=== PATIENT | male | born 1960 | race African-American/Black ===

== ENCOUNTER 2019-08-26 06:43 | Inpatient (IN) ==
[2019-08-26] MEDS ORDERED: ACETAMINOPHEN 500 MG TABLET PO STA (06:56)
[2019-08-26 07:13] LABS: Basophils # 0.1 10*3/uL (0.0-0.2); Basophils % 0.6 % (0.0-0.8); Eosinophils # 0.1 10*3/uL (0.0-0.87); Eosinophils % 0.7 % (0.00-10.9); Hemoglobin 12.3 GM/DL (14.0-18.0); Immature Granulocytes % 1.7 %; Immature Granulocytes Absolute 0.14 #; Lymphocytes # 0.8 10*3/uL (1.4-4.0); Mean Corpuscular HGB Conc 31.5 GM/DL (32-36); Mean Corpuscular Volume 93.5 FL (87-102); Monocytes % 10.1 % (1.7-12.7); Neutrophils % 77.9 % (38.7-73.9); Red Blood Count 4.17 MC/CUMM (3.8-5.5); White Blood Count 8.5 T/CUMM (4-12)
[2019-08-26 07:17] LABS: Platelet Count 51 T/CUMM (130-400)
[2019-08-26 07:19] LABS: INR 1.3; PT Patient Result 13.7 SECS (9.6-12.2)
[2019-08-26 07:29] LABS: Platelet Estimate Decreased
[2019-08-26 07:31] LABS: Alanine Aminotransferase 79 U/L (16-61); Albumin 2.9 G/DL (3.4-5.0); Alkaline Phosphatase 145 U/L (45-117); Aspartate Amino Transferase 54 U/L (0-37); Blood Urea Nitrogen 79 MG/DL (7-18); Calcium 9.5 MG/DL (8.5-10.1); Estimated Glom Filtration Rate 8 ML/MIN; Glucose 168 MG/DL (74-106); Osmolality,Calculated 295.2 MOS/KG (273-304); Total Protein 8.3 G/DL (6.4-8.3)
[2019-08-26] MEDS ORDERED: SODIUM CHLORIDE 0.9% 250 ML IV STA (07:36)
[2019-08-26] MEDS ORDERED: PIPERACILLIN/TAZOBACTAM 3,375 MG in SODIUM CHLORIDE 0.9% 100 ML IV STA (07:36)
[2019-08-26] MEDS ORDERED: VANCOMYCIN INJ 1,750 MG in SODIUM CHLORIDE 0.9% 500 ML IV ONE (14:00)
[2019-08-26] MEDS: SEVELAMER CARBONATE 800 MG TABLET PO SCH (16:53)
[2019-08-26] MEDS ORDERED: METOPROLOL TARTRATE 25 MG TABLET PO SCH (21:00)
[2019-08-26] MEDS ORDERED: VANCOMYCIN INJ 750 MG in SODIUM CHLORIDE 0.9% 250 ML IV PRN (21:00)
[2019-08-26] MEDS: PIPERACILLIN/TAZOBACTAM 3,375 MG in SODIUM CHLORIDE 0.9% 100 ML IV SCH (21:28)
[2019-08-27 05:21] LABS: Basophils % 0.3 % (0.0-0.8); Eosinophils % 0.3 % (0.00-10.9); Hematocrit 31.2 VOL% (42.0-52.0); Hemoglobin 10.1 GM/DL (14.0-18.0); Immature Granulocytes % 1.2 %; Immature Granulocytes Absolute 0.12 #; Lymphocytes # 0.5 10*3/uL (1.4-4.0); Lymphocytes % 5.3 % (21.2-54.2); Mean Corpuscular HGB Conc 32.4 GM/DL (32-36); Neutrophils % 84.9 % (38.7-73.9); Platelet Count 46 T/CUMM (130-400); Red Blood Count 3.43 MC/CUMM (3.8-5.5); Red Cell Distribution Width 16.9 % (9.3-17.3); White Blood Count 10.2 T/CUMM (4-12)
[2019-08-27 05:40] LABS: Band Neutrophils 1 % (0-10); Hypochromasia 1+; Lymphocytes 6 % (20-55); Platelet Estimate Decreased; Segmented Neutrophils 88 % (50-85); Total Cells Counted 100
[2019-08-27 05:50] LABS: HDL Cholesterol < 10 MG/DL (40-60); Triglycerides 193 MG/DL (2-150); VLDL CHOLESTEROL 38.6 MG/DL
[2019-08-27 06:07] LABS: Albumin 2.3 G/DL (3.4-5.0); Bilirubin,Total 2.8 MG/DL (0.2-1.0); Calcium 8.9 MG/DL (8.5-10.1); Osmolality,Calculated 294.1 MOS/KG (273-304); Total Protein 6.9 G/DL (6.4-8.3)
[2019-08-27] MEDS ORDERED: SODIUM CHLORIDE 0.9% 500 ML IV ONE (08:05)
[2019-08-27] MEDS ORDERED: amLODIPine 10 MG TABLET PO SCH (09:00)
[2019-08-27] MEDS: SEVELAMER CARBONATE 800 MG TABLET PO SCH ×3 (09:27→17:15)
[2019-08-27] MEDS: CINACALCET 30 MG TABLET PO SCH (09:28)
[2019-08-27] MEDS: ATORVASTATIN 20 MG TABLET PO SCH (09:28)
[2019-08-27] MEDS: PIPERACILLIN/TAZOBACTAM 3,375 MG in SODIUM CHLORIDE 0.9% 100 ML IV SCH ×2 (09:29→20:33)
[2019-08-27] MEDS ORDERED: LIDOCAINE 1%/EPI INJ 20 ML VIAL ONE (09:46)
[2019-08-27] MEDS ORDERED: HEPARIN 5,000 UNIT/1 ML VIAL ONE (09:46)
[2019-08-27] MEDS ORDERED: BUPIVACAINE 0.25% /EPI 10 ML VIAL ONE (09:46)
[2019-08-27] MEDS ORDERED: DEXMEDETOMIDINE 200 MCG/2 ML VIAL ONE (09:48)
[2019-08-27] MEDS ORDERED: MIDAZOLAM 2 MG/2 ML VIAL ONE (12:28)
[2019-08-27] MEDS ORDERED: KETAMINE 500 MG/10 ML VIAL ONE (12:28)
[2019-08-27] MEDS ORDERED: HEPARIN 10,000 UNIT/10 ML VIAL IV SCH (15:00)
[2019-08-27] MEDS ORDERED: VANCOMYCIN INJ 750 MG in SODIUM CHLORIDE 0.9% 250 ML IV ONE (17:00)
[2019-08-27] MEDS ORDERED: BISACODYL 10 MG SUPP RECTAL ONE (21:00)
[2019-08-28 05:50] LABS: Basophils % 0.4 % (0.0-0.8); Eosinophils # 0.1 10*3/uL (0.0-0.87); Eosinophils % 0.5 % (0.00-10.9); Hematocrit 31.3 VOL% (42.0-52.0); Hemoglobin 9.9 GM/DL (14.0-18.0); Immature Granulocytes % 1.8 %; Immature Granulocytes Absolute 0.17 #; Lymphocytes # 0.5 10*3/uL (1.4-4.0); Lymphocytes % 5.6 % (21.2-54.2); Mean Corpuscular HGB Conc 31.6 GM/DL (32-36); Monocytes % 9.6 % (1.7-12.7); Neutrophils % 82.1 % (38.7-73.9); Red Blood Count 3.33 MC/CUMM (3.8-5.5); Red Cell Distribution Width 17.2 % (9.3-17.3); White Blood Count 9.3 T/CUMM (4-12)
[2019-08-28 05:51] LABS: Platelet Count 54 T/CUMM (130-400)
[2019-08-28 06:13] LABS: Hypochromasia 1+; Ovalocytes Slight; Platelet Estimate Decreased
[2019-08-28 06:14] LABS: Albumin 1.9 G/DL (3.4-5.0); Bilirubin,Total 3.3 MG/DL (0.2-1.0); Osmolality,Calculated 280.1 MOS/KG (273-304); Total Protein 6.1 G/DL (6.4-8.3)
[2019-08-28] MEDS: SEVELAMER CARBONATE 800 MG TABLET PO SCH ×3 (08:46→18:10)
[2019-08-28] MEDS: CINACALCET 30 MG TABLET PO SCH (08:46)
[2019-08-28] MEDS: ATORVASTATIN 20 MG TABLET PO SCH (08:46)
[2019-08-28] MEDS: ATORVASTATIN 40 MG TABLET PO SCH (09:27)
[2019-08-28] MEDS: PIPERACILLIN/TAZOBACTAM 3,375 MG in SODIUM CHLORIDE 0.9% 100 ML IV SCH ×2 (10:31→21:19)
[2019-08-28] MEDS: calcitrioL 0.25 MCG CAPSULE PO SCH (11:32)
[2019-08-29] MEDS ORDERED: ACETAMINOPHEN 325 MG TABLET PO ONE (01:41)
[2019-08-29 02:45] LABS: Basophils % 0.3 % (0.0-0.8); Eosinophils # 0.1 10*3/uL (0.0-0.87); Eosinophils % 1.1 % (0.00-10.9); Hematocrit 32.5 VOL% (42.0-52.0); Hemoglobin 10.3 GM/DL (14.0-18.0); Immature Granulocytes % 4.8 %; Immature Granulocytes Absolute 0.44 #; Lymphocytes # 0.4 10*3/uL (1.4-4.0); Lymphocytes % 4.1 % (21.2-54.2); Mean Corpuscular HGB Conc 31.7 GM/DL (32-36); Mean Corpuscular Volume 93.7 FL (87-102); Mean Platelet Volume 13.7 FL (9.6-12.0); Monocytes % 7.3 % (1.7-12.7); Neutrophils % 82.4 % (38.7-73.9); Red Blood Count 3.47 MC/CUMM (3.8-5.5); Red Cell Distribution Width 17.3 % (9.3-17.3); White Blood Count 9.1 T/CUMM (4-12)
[2019-08-29 02:49] LABS: Platelet Count 73 T/CUMM (130-400)
[2019-08-29 02:51] LABS: Albumin 1.8 G/DL (3.4-5.0); Bilirubin,Total 3.2 MG/DL (0.2-1.0); Calcium 8.3 MG/DL (8.5-10.1); Osmolality,Calculated 282.8 MOS/KG (273-304); Total Protein 6.3 G/DL (6.4-8.3)
[2019-08-29 03:26] LABS: Anisocytosis 2+; Band Neutrophils 10 % (0-10); Eosinophils 3 % (0-10); Hypochromasia Slight; Lymphocytes 5 % (20-55); Macrocytosis 2+; Ovalocytes 2+; Platelet Estimate Decreased; Segmented Neutrophils 76 % (50-85); Total Cells Counted 100
[2019-08-29] MEDS: MIDODRINE 2.5 MG TABLET PO SCH ×2 (09:01→20:57)
[2019-08-29] MEDS: PIPERACILLIN/TAZOBACTAM 3,375 MG in SODIUM CHLORIDE 0.9% 100 ML IV SCH (09:01)
[2019-08-29] MEDS: ATORVASTATIN 40 MG TABLET PO SCH (09:01)
[2019-08-29] MEDS: SEVELAMER CARBONATE 800 MG TABLET PO SCH ×3 (09:01→16:53)
[2019-08-29] MEDS: CINACALCET 30 MG TABLET PO SCH (09:01)
[2019-08-29] MEDS: calcitrioL 0.25 MCG CAPSULE PO SCH (09:01)
[2019-08-29] MEDS ORDERED: ALBUMIN 25% 25 GM in PREMIX 1 EACH IV ONE (13:00)
[2019-08-29] MEDS ORDERED: VANCOMYCIN INJ 750 MG in SODIUM CHLORIDE 0.9% 250 ML IV ONE (17:00)
[2019-08-29] MEDS: ACETAMINOPHEN 325 MG TABLET PO PRN (21:03)
[2019-08-29] MEDS: MEROPENEM 500 MG in SODIUM CHLORIDE 0.9% 100 ML IV SCH (22:18)
[2019-08-30] MEDS ORDERED: methylPREDNISolone SOD SUC 125 MG/2 ML VIAL IV ONE (00:37)
[2019-08-30 05:43] LABS: Basophils # 0.1 10*3/uL (0.0-0.2); Basophils % 0.5 % (0.0-0.8); Eosinophils # 0.2 10*3/uL (0.0-0.87); Eosinophils % 1.6 % (0.00-10.9); Hematocrit 33.9 VOL% (42.0-52.0); Hemoglobin 10.3 GM/DL (14.0-18.0); Immature Granulocytes % 1.5 %; Immature Granulocytes Absolute 0.14 #; Lymphocytes # 0.5 10*3/uL (1.4-4.0); Mean Corpuscular HGB Conc 30.4 GM/DL (32-36); Mean Corpuscular Volume 94.7 FL (87-102); Mean Platelet Volume 11.7 FL (9.6-12.0); Monocytes % 8.5 % (1.7-12.7); Neutrophils % 82.9 % (38.7-73.9); Red Blood Count 3.58 MC/CUMM (3.8-5.5); Red Cell Distribution Width 17.2 % (9.3-17.3); White Blood Count 9.4 T/CUMM (4-12)
[2019-08-30 06:07] LABS: Platelet Count 77 T/CUMM (130-400)
[2019-08-30 06:17] LABS: Albumin 1.9 G/DL (3.4-5.0); Bilirubin,Total 3.8 MG/DL (0.2-1.0); Calcium 8.6 MG/DL (8.5-10.1); Osmolality,Calculated 270.2 MOS/KG (273-304); Total Protein 6.6 G/DL (6.4-8.3)
[2019-08-30 06:18] LABS: Hypochromasia 1+
[2019-08-30 06:19] LABS: Macrocytosis 1+; Platelet Estimate Decreased; Target Cells Slight
[2019-08-30] MEDS: CINACALCET 30 MG TABLET PO SCH (10:01)
[2019-08-30] MEDS: MIDODRINE 2.5 MG TABLET PO SCH ×2 (10:01→20:28)
[2019-08-30] MEDS: SEVELAMER CARBONATE 800 MG TABLET PO SCH ×3 (10:01→17:33)
[2019-08-30] MEDS: calcitrioL 0.25 MCG CAPSULE PO SCH (10:01)
[2019-08-30] MEDS: ATORVASTATIN 40 MG TABLET PO SCH (10:01)
[2019-08-30] MEDS: MEROPENEM 500 MG in SODIUM CHLORIDE 0.9% 100 ML IV SCH (20:31)
[2019-08-31] MEDS: SEVELAMER CARBONATE 800 MG TABLET PO SCH ×3 (07:55→16:36)
[2019-08-31 13:06] LABS: Basophils % 0.4 % (0.0-0.8); Eosinophils # 0.2 10*3/uL (0.0-0.87); Hematocrit 35.7 VOL% (42.0-52.0); Hemoglobin 10.8 GM/DL (14.0-18.0); Immature Granulocytes % 2.5 %; Lymphocytes # 0.6 10*3/uL (1.4-4.0); Lymphocytes % 7.5 % (21.2-54.2); Mean Corpuscular HGB Conc 30.3 GM/DL (32-36); Mean Corpuscular Volume 96.7 FL (87-102); Mean Platelet Volume 13.3 FL (9.6-12.0); Monocytes % 8.2 % (1.7-12.7); Neutrophils % 79.4 % (38.7-73.9); Platelet Count 100 T/CUMM (130-400); Red Blood Count 3.69 MC/CUMM (3.8-5.5); Red Cell Distribution Width 17.5 % (9.3-17.3)
[2019-08-31] MEDS ORDERED: SODIUM CHLORIDE 0.9% 1,000 ML IV SCH (14:00)
[2019-08-31] MEDS: calcitrioL 0.25 MCG CAPSULE PO SCH (15:02)
[2019-08-31] MEDS: MIDODRINE 2.5 MG TABLET PO SCH ×2 (15:02→21:19)
[2019-08-31] MEDS: ATORVASTATIN 40 MG TABLET PO SCH (15:02)
[2019-08-31] MEDS: CINACALCET 30 MG TABLET PO SCH (15:02)
[2019-08-31] MEDS: LEVOFLOXACIN INJ 500 MG in PREMIX 1 EACH IV SCH (15:21)
[2019-08-31] MEDS ORDERED: VANCOMYCIN INJ 750 MG in SODIUM CHLORIDE 0.9% 250 ML IV ONE (17:00)
[2019-09-01 07:56] LABS: Basophils % 0.6 % (0.0-0.8); Eosinophils # 0.1 10*3/uL (0.0-0.87); Eosinophils % 2.2 % (0.00-10.9); Hematocrit 35.3 VOL% (42.0-52.0); Hemoglobin 10.7 GM/DL (14.0-18.0); Immature Granulocytes % 2.1 %; Immature Granulocytes Absolute 0.13 #; Lymphocytes # 0.6 10*3/uL (1.4-4.0); Lymphocytes % 9.5 % (21.2-54.2); Mean Corpuscular HGB Conc 30.3 GM/DL (32-36); Mean Corpuscular Volume 95.9 FL (87-102); Mean Platelet Volume 13.2 FL (9.6-12.0); Monocytes % 9.2 % (1.7-12.7); Neutrophils % 76.4 % (38.7-73.9); Platelet Count 103 T/CUMM (130-400); Red Blood Count 3.68 MC/CUMM (3.8-5.5); Red Cell Distribution Width 17.2 % (9.3-17.3); White Blood Count 6.3 T/CUMM (4-12)
[2019-09-01 08:09] LABS: Calcium 8.5 MG/DL (8.5-10.1); Osmolality,Calculated 269.2 MOS/KG (273-304)
[2019-09-01] MEDS: SEVELAMER CARBONATE 800 MG TABLET PO SCH ×3 (08:39→16:44)
[2019-09-01] MEDS ORDERED: POTASSIUM CHLORIDE 20 MEQ TABLET PO PRN (08:59)
[2019-09-01] MEDS: CINACALCET 30 MG TABLET PO SCH (10:01)
[2019-09-01] MEDS: calcitrioL 0.25 MCG CAPSULE PO SCH (10:01)
[2019-09-01] MEDS: MIDODRINE 2.5 MG TABLET PO SCH ×2 (10:01→20:38)
[2019-09-01] MEDS: ATORVASTATIN 40 MG TABLET PO SCH (10:01)
[2019-09-01] MEDS: POTASSIUM CHLORIDE RIDER 10 MEQ in PREMIX 1 EACH IV PRN ×4 (10:40→14:39)
[2019-09-01] MEDS ORDERED: ALBUTEROL/IPRATROPIUM 3 ML NEB RESP TX PRN (11:32)
[2019-09-01] MEDS: ALBUTEROL/IPRATROPIUM 3 ML NEB RESP TX SCH ×2 (14:15→19:04)
[2019-09-02] MEDS: ALBUTEROL/IPRATROPIUM 3 ML NEB RESP TX SCH ×4 (00:31→19:20)
[2019-09-02 06:37] LABS: Basophils % 0.6 % (0.0-0.8); Eosinophils # 0.1 10*3/uL (0.0-0.87); Eosinophils % 1.8 % (0.00-10.9); Hematocrit 32.9 VOL% (42.0-52.0); Immature Granulocytes % 1.4 %; Immature Granulocytes Absolute 0.09 #; Lymphocytes # 0.7 10*3/uL (1.4-4.0); Lymphocytes % 10.5 % (21.2-54.2); Mean Corpuscular HGB Conc 30.4 GM/DL (32-36); Mean Corpuscular Volume 95.9 FL (87-102); Mean Platelet Volume 12.8 FL (9.6-12.0); Monocytes % 9.6 % (1.7-12.7); Neutrophils % 76.1 % (38.7-73.9); Platelet Count 110 T/CUMM (130-400); Red Blood Count 3.43 MC/CUMM (3.8-5.5); Red Cell Distribution Width 17.2 % (9.3-17.3); White Blood Count 6.3 T/CUMM (4-12)
[2019-09-02 06:57] LABS: Calcium 8.9 MG/DL (8.5-10.1); Osmolality,Calculated 274.4 MOS/KG (273-304)
[2019-09-02] MEDS: ATORVASTATIN 40 MG TABLET PO SCH (09:39)
[2019-09-02] MEDS: CINACALCET 30 MG TABLET PO SCH (09:39)
[2019-09-02] MEDS: MIDODRINE 2.5 MG TABLET PO SCH ×2 (09:39→20:33)
[2019-09-02] MEDS: calcitrioL 0.25 MCG CAPSULE PO SCH (09:39)
[2019-09-02] MEDS: SEVELAMER CARBONATE 800 MG TABLET PO SCH ×3 (09:40→18:42)
[2019-09-02] MEDS ORDERED: LIDOCAINE 1%/EPI INJ 20 ML VIAL ONE (11:34)
[2019-09-02] MEDS ORDERED: BUPIVACAINE MPF 0.25% 30 ML VIAL ONE (11:35)
[2019-09-02] MEDS ORDERED: propofoL 200 MG/20 ML VIAL IV ONE ×2 (11:40→13:07)
[2019-09-02] MEDS ORDERED: ETOMIDATE 40 MG/20 ML VIAL IV ONE (11:41)
[2019-09-02] MEDS ORDERED: LIDOCAINE 2% 5 ML VIAL ONE ×2 (11:41→13:07)
[2019-09-02] MEDS ORDERED: SODIUM CHLORIDE 0.9% 250 ML IV SCH (12:00)
[2019-09-02] MEDS ORDERED: HEPARIN 5,000 UNIT/1 ML VIAL ONE (12:14)
[2019-09-02] MEDS ORDERED: KETAMINE 500 MG/10 ML VIAL ONE (13:07)
[2019-09-02] MEDS ORDERED: fentaNYL 100 MCG/2 ML VIAL ONE (13:08)
[2019-09-02] MEDS ORDERED: PHENYLEPHRINE 1 MG/10 ML SYRINGE IV ONE (13:08)
[2019-09-02] MEDS ORDERED: MIDAZOLAM 2 MG/2 ML VIAL ONE (13:08)
[2019-09-02] MEDS ORDERED: SODIUM CHLORIDE 0.9% 250 ML IV ONE (13:08)
[2019-09-02] MEDS ORDERED: ALBUMIN 25% 25 GM in PREMIX 1 EACH IV ONE (15:00)
[2019-09-02] MEDS ORDERED: VANCOMYCIN INJ 750 MG in SODIUM CHLORIDE 0.9% 250 ML IV ONE (17:00)
[2019-09-02] MEDS: LEVOFLOXACIN INJ 500 MG in PREMIX 1 EACH IV SCH (17:33)
[2019-09-02] MEDS: GENTAMICIN INJ 80 MG in PREMIX 1 EACH IV SCH (19:19)
[2019-09-03] MEDS: ALBUTEROL/IPRATROPIUM 3 ML NEB RESP TX SCH ×4 (00:24→19:25)
[2019-09-03 04:55] LABS: Basophils % 0.6 % (0.0-0.8); Eosinophils # 0.1 10*3/uL (0.0-0.87); Eosinophils % 1.6 % (0.00-10.9); Hemoglobin 9.7 GM/DL (14.0-18.0); Immature Granulocytes % 1.3 %; Immature Granulocytes Absolute 0.08 #; Lymphocytes # 0.8 10*3/uL (1.4-4.0); Lymphocytes % 12.4 % (21.2-54.2); Mean Corpuscular HGB Conc 30.3 GM/DL (32-36); Mean Corpuscular Volume 95.5 FL (87-102); Mean Platelet Volume 12.7 FL (9.6-12.0); Monocytes % 8.8 % (1.7-12.7); Neutrophils % 75.3 % (38.7-73.9); Platelet Count 104 T/CUMM (130-400); Red Blood Count 3.35 MC/CUMM (3.8-5.5); White Blood Count 6.3 T/CUMM (4-12)
[2019-09-03 05:35] LABS: Calcium 8.5 MG/DL (8.5-10.1)
[2019-09-03] MEDS: MIDODRINE 2.5 MG TABLET PO SCH ×2 (08:57→20:05)
[2019-09-03] MEDS: CINACALCET 30 MG TABLET PO SCH (08:57)
[2019-09-03] MEDS: SEVELAMER CARBONATE 800 MG TABLET PO SCH ×3 (08:57→18:15)
[2019-09-03] MEDS: ATORVASTATIN 40 MG TABLET PO SCH (08:57)
[2019-09-03] MEDS: calcitrioL 0.25 MCG CAPSULE PO SCH (08:57)
[2019-09-03] MEDS ORDERED: SODIUM CHLORIDE 0.9% 300 ML IV ONE (12:20)
[2019-09-03] MEDS ORDERED: ALBUMIN 25% 25 GM in PREMIX 1 EACH IV ONE (13:41)
[2019-09-03] MEDS ORDERED: NOREPINEPHRINE 8 MG in SODIUM CHLORIDE 0.9% 242 ML IV PRN (14:02)
[2019-09-03] MEDS ORDERED: VANCOMYCIN INJ 750 MG in SODIUM CHLORIDE 0.9% 250 ML IV PRN (14:16)
[2019-09-03] MEDS ORDERED: POTASSIUM CHLORIDE 20 MEQ TABLET PO ONE (17:05)
[2019-09-03] MEDS ORDERED: GLUCAGON 1 MG VIAL IM PRN (17:42)
[2019-09-03] MEDS: DEXTROSE 10% 250 ML BAG IV PRN (18:05)
[2019-09-04] MEDS: ALBUTEROL/IPRATROPIUM 3 ML NEB RESP TX SCH ×4 (00:35→19:06)
[2019-09-04 06:00] LABS: Basophils # 0.1 10*3/uL (0.0-0.2); Eosinophils # 0.1 10*3/uL (0.0-0.87); Eosinophils % 2.1 % (0.00-10.9); Hemoglobin 9.9 GM/DL (14.0-18.0); Immature Granulocytes Absolute 0.05 #; Lymphocytes # 0.5 10*3/uL (1.4-4.0); Lymphocytes % 9.9 % (21.2-54.2); Mean Corpuscular HGB Conc 29.1 GM/DL (32-36); Mean Corpuscular Volume 98.8 FL (87-102); Mean Platelet Volume 12.6 FL (9.6-12.0); Monocytes % 7.2 % (1.7-12.7); Neutrophils % 78.8 % (38.7-73.9); Platelet Count 105 T/CUMM (130-400); Red Blood Count 3.44 MC/CUMM (3.8-5.5); Red Cell Distribution Width 17.2 % (9.3-17.3); White Blood Count 5.2 T/CUMM (4-12)
[2019-09-04 06:20] LABS: Calcium 8.5 MG/DL (8.5-10.1); Osmolality,Calculated 264.7 MOS/KG (273-304)
[2019-09-04 06:27] LABS: Hematocrit 33.3 VOL% (42.0-52.0)
[2019-09-04] MEDS: DEXTROSE 10% 250 ML BAG IV PRN (08:05)
[2019-09-04] MEDS: CINACALCET 30 MG TABLET PO SCH (09:39)
[2019-09-04] MEDS: calcitrioL 0.25 MCG CAPSULE PO SCH (09:40)
[2019-09-04] MEDS: ATORVASTATIN 40 MG TABLET PO SCH (09:40)
[2019-09-04] MEDS: SEVELAMER CARBONATE 800 MG TABLET PO SCH ×3 (09:40→17:52)
[2019-09-04] MEDS: MIDODRINE 2.5 MG TABLET PO SCH ×2 (09:40→20:50)
[2019-09-04] MEDS ORDERED: SODIUM CHLORIDE 0.9% 250 ML IV SCH (11:30)
[2019-09-04] MEDS ORDERED: VANCOMYCIN 1,000 MG VIAL ONE (12:00)
[2019-09-04] MEDS ORDERED: LIDOCAINE 2% 5 ML VIAL ONE (12:55)
[2019-09-04] MEDS ORDERED: PHENYLEPHRINE DRIP 20 MG/250 ML PREMIX IV ONE (12:55)
[2019-09-04] MEDS ORDERED: DESFLURANE 1 UNIT/15 MINUTE INH ONE (12:55)
[2019-09-04] MEDS ORDERED: propofoL 200 MG/20 ML VIAL IV ONE (12:55)
[2019-09-04] MEDS ORDERED: ETOMIDATE 40 MG/20 ML VIAL IV ONE (12:56)
[2019-09-04] MEDS ORDERED: ePHEDrine 50 MG/ML AMP ONE (12:56)
[2019-09-04] MEDS ORDERED: fentaNYL 100 MCG/2 ML VIAL ONE (12:56)
[2019-09-04] MEDS ORDERED: SUCCINYLCHOLINE 200 MG/10 ML VIAL ONE (12:56)
[2019-09-04] MEDS ORDERED: NEOSTIGMINE 10 MG/10 ML VIAL ONE (13:00)
[2019-09-04] MEDS ORDERED: GLYCOPYRROLATE 0.4 MG/2 ML VIAL ONE (13:00)
[2019-09-04] MEDS: ACETAMINOPHEN 325 MG TABLET PO PRN (16:54)
[2019-09-04] MEDS: MUPIROCIN 2% OINT 22 GM TUBE TOP SCH ×2 (16:55→20:50)
[2019-09-04] MEDS: GENTAMICIN INJ 80 MG in PREMIX 1 EACH IV SCH (20:51)
[2019-09-04] MEDS ORDERED: VANCOMYCIN INJ 750 MG in SODIUM CHLORIDE 0.9% 250 ML IV ONE (21:00)
[2019-09-05] MEDS: ALBUTEROL/IPRATROPIUM 3 ML NEB RESP TX SCH ×4 (02:03→18:21)
[2019-09-05 06:42] LABS: Basophils % 0.8 % (0.0-0.8); Eosinophils # 0.1 10*3/uL (0.0-0.87); Eosinophils % 1.6 % (0.00-10.9); Hematocrit 29.9 VOL% (42.0-52.0); Hemoglobin 8.7 GM/DL (14.0-18.0); Immature Granulocytes % 1.2 %; Immature Granulocytes Absolute 0.06 #; Lymphocytes # 0.6 10*3/uL (1.4-4.0); Lymphocytes % 11.8 % (21.2-54.2); Mean Corpuscular HGB Conc 29.1 GM/DL (32-36); Mean Corpuscular Volume 98.4 FL (87-102); Mean Platelet Volume 12.1 FL (9.6-12.0); Monocytes % 6.6 % (1.7-12.7); Platelet Count 90 T/CUMM (130-400); Red Blood Count 3.04 MC/CUMM (3.8-5.5); Red Cell Distribution Width 17.2 % (9.3-17.3); White Blood Count 5.2 T/CUMM (4-12)
[2019-09-05 07:13] LABS: Calcium 8.2 MG/DL (8.5-10.1); Osmolality,Calculated 261.5 MOS/KG (273-304)
[2019-09-05 10:10] LABS: Band Neutrophils 1 % (0-10); Eosinophils 1 % (0-10); Lymphocytes 12 % (20-55); Segmented Neutrophils 82 % (50-85); Total Cells Counted 100
[2019-09-05] MEDS: calcitrioL 0.25 MCG CAPSULE PO SCH (10:10)
[2019-09-05] MEDS: CINACALCET 30 MG TABLET PO SCH (10:10)
[2019-09-05] MEDS: MIDODRINE 2.5 MG TABLET PO SCH ×3 (10:10→21:17)
[2019-09-05] MEDS: SEVELAMER CARBONATE 800 MG TABLET PO SCH ×3 (10:10→16:15)
[2019-09-05] MEDS: ATORVASTATIN 40 MG TABLET PO SCH (10:10)
[2019-09-05 10:11] LABS: Hypochromasia 1+; Platelet Estimate Adequate; Schistocytes Slight
[2019-09-05] MEDS: MUPIROCIN 2% OINT 22 GM TUBE TOP SCH ×3 (10:11→21:17)
[2019-09-05] MEDS ORDERED: DEXTROSE 10% 1,000 ML IV SCH (16:00)
[2019-09-05] MEDS: HYDROCORTISONE 100 MG VIAL IV SCH ×2 (16:14→23:21)
[2019-09-05 18:26] LABS: ABG Base Excess -0.2 MMOL/L (-2.5-2.5); ABG HCO3 24.2 MMOL/L (20-26); ABG Oxygen Saturation 92.1 % (95-100); ABG PCO2 41.6 MM HG (35-48); ABG PH 7.385 (7.35-7.45); ABG PO2 61.5 MM HG (80-95); Allen Test Positive
[2019-09-05] MEDS: ACETAMINOPHEN 325 MG TABLET PO PRN (23:17)
[2019-09-06] MEDS: HYDROCORTISONE 100 MG VIAL IV SCH ×3 (00:15→16:02)
[2019-09-06] MEDS: ALBUTEROL/IPRATROPIUM 3 ML NEB RESP TX SCH ×4 (00:22→19:20)
[2019-09-06 06:35] LABS: Basophils % 0.5 % (0.0-0.8); Eosinophils % 0.3 % (0.00-10.9); Hematocrit 33.4 VOL% (42.0-52.0); Hemoglobin 9.8 GM/DL (14.0-18.0); Immature Granulocytes % 1.3 %; Immature Granulocytes Absolute 0.05 #; Lymphocytes # 0.4 10*3/uL (1.4-4.0); Mean Corpuscular HGB Conc 29.3 GM/DL (32-36); Mean Corpuscular Volume 96.8 FL (87-102); Mean Platelet Volume 13.3 FL (9.6-12.0); Monocytes % 3.5 % (1.7-12.7); Neutrophils % 84.4 % (38.7-73.9); Platelet Count 111 T/CUMM (130-400); Red Blood Count 3.45 MC/CUMM (3.8-5.5); Red Cell Distribution Width 17.2 % (9.3-17.3); White Blood Count 3.7 T/CUMM (4-12)
[2019-09-06 06:56] LABS: Calcium 8.7 MG/DL (8.5-10.1); Osmolality,Calculated 268.9 MOS/KG (273-304)
[2019-09-06] MEDS: calcitrioL 0.25 MCG CAPSULE PO SCH (09:45)
[2019-09-06] MEDS: ACETAMINOPHEN 325 MG TABLET PO PRN (09:45)
[2019-09-06] MEDS: MIDODRINE 2.5 MG TABLET PO SCH ×3 (09:46→20:27)
[2019-09-06] MEDS: MUPIROCIN 2% OINT 22 GM TUBE TOP SCH ×3 (09:46→20:27)
[2019-09-06] MEDS: CINACALCET 30 MG TABLET PO SCH (09:46)
[2019-09-06] MEDS: ATORVASTATIN 40 MG TABLET PO SCH (09:46)
[2019-09-06] MEDS: SEVELAMER CARBONATE 800 MG TABLET PO SCH ×3 (10:52→16:01)
[2019-09-06 11:48] LABS: Anisocytosis Slight; Hypochromasia 2+; Lymphocytes 3 % (20-55); Polychromasia Slight; Segmented Neutrophils 93 % (50-85); Total Cells Counted 100
[2019-09-06 11:49] LABS: Ovalocytes Slight; Platelet Estimate Adequate; Target Cells Slight
[2019-09-06 15:15] LABS: Albumin 1.9 G/DL (3.4-5.0); Bilirubin,Direct 4.51 MG/DL (0.0-0.20); Bilirubin,Indirect 0.8 MG/DL (0.0-1.0); Bilirubin,Total 5.3 MG/DL (0.2-1.0); Total Protein 7.8 G/DL (6.4-8.3)
[2019-09-06 16:15] LABS: HIV Antigen/Antibody Result Nonreactive (Nonreactive)
[2019-09-07] MEDS: HYDROCORTISONE 100 MG VIAL IV SCH ×4 (00:08→23:36)
[2019-09-07] MEDS: ALBUTEROL/IPRATROPIUM 3 ML NEB RESP TX SCH ×5 (00:15→19:24)
[2019-09-07 04:58] LABS: Basophils % 0.4 % (0.0-0.8); Hematocrit 33.3 VOL% (42.0-52.0); Hemoglobin 9.9 GM/DL (14.0-18.0); Immature Granulocytes Absolute 0.05 #; Lymphocytes # 0.3 10*3/uL (1.4-4.0); Lymphocytes % 6.1 % (21.2-54.2); Mean Corpuscular HGB Conc 29.7 GM/DL (32-36); Mean Corpuscular Volume 95.7 FL (87-102); Mean Platelet Volume 12.2 FL (9.6-12.0); Monocytes % 2.7 % (1.7-12.7); Neutrophils % 89.8 % (38.7-73.9); Platelet Count 124 T/CUMM (130-400); Red Blood Count 3.48 MC/CUMM (3.8-5.5); Red Cell Distribution Width 17.1 % (9.3-17.3); White Blood Count 5.2 T/CUMM (4-12)
[2019-09-07 05:31] LABS: Calcium 8.6 MG/DL (8.5-10.1); Osmolality,Calculated 274.2 MOS/KG (273-304)
[2019-09-07 05:36] LABS: Bilirubin,Total 4.6 MG/DL (0.2-1.0); Calcium 8.5 MG/DL (8.5-10.1); Osmolality,Calculated 275.1 MOS/KG (273-304); Total Protein 8.4 G/DL (6.4-8.3)
[2019-09-07] MEDS ORDERED: SODIUM HYPOCHLORITE 0.25% IRRIG 473 ML BOTTLE TOP SCH (09:17)
[2019-09-07] MEDS: MIDODRINE 2.5 MG TABLET PO SCH ×3 (09:36→22:24)
[2019-09-07] MEDS: MUPIROCIN 2% OINT 22 GM TUBE TOP SCH ×3 (09:36→22:24)
[2019-09-07] MEDS: CINACALCET 30 MG TABLET PO SCH (09:37)
[2019-09-07] MEDS: ATORVASTATIN 40 MG TABLET PO SCH (09:37)
[2019-09-07] MEDS: calcitrioL 0.25 MCG CAPSULE PO SCH (09:37)
[2019-09-07] MEDS: SEVELAMER CARBONATE 800 MG TABLET PO SCH ×3 (09:37→18:03)
[2019-09-07] MEDS ORDERED: VANCOMYCIN INJ 1,000 MG in SODIUM CHLORIDE 0.9% 250 ML IV ONE ×2 (13:45→22:30)
[2019-09-08] MEDS: ALBUTEROL/IPRATROPIUM 3 ML NEB RESP TX SCH ×2 (00:22→07:21)
[2019-09-08 04:46] LABS: Hematocrit 31.4 VOL% (42.0-52.0); Hemoglobin 9.3 GM/DL (14.0-18.0); Immature Granulocytes % 1.3 %; Immature Granulocytes Absolute 0.04 #; Lymphocytes # 0.3 10*3/uL (1.4-4.0); Lymphocytes % 7.9 % (21.2-54.2); Mean Corpuscular HGB Conc 29.6 GM/DL (32-36); Mean Corpuscular Volume 95.7 FL (87-102); Mean Platelet Volume 13.3 FL (9.6-12.0); Monocytes % 7.3 % (1.7-12.7); Neutrophils % 83.5 % (38.7-73.9); Platelet Count 111 T/CUMM (130-400); Red Blood Count 3.28 MC/CUMM (3.8-5.5); White Blood Count 3.2 T/CUMM (4-12)
[2019-09-08 05:10] LABS: Calcium 8.5 MG/DL (8.5-10.1); Osmolality,Calculated 273.5 MOS/KG (273-304)
[2019-09-08] MEDS: HYDROCORTISONE 100 MG VIAL IV SCH ×2 (09:11→09:14)
[2019-09-08] MEDS: SEVELAMER CARBONATE 800 MG TABLET PO SCH (09:12)
[2019-09-08] MEDS: MIDODRINE 2.5 MG TABLET PO SCH (09:12)
[2019-09-08] MEDS: CINACALCET 30 MG TABLET PO SCH (09:12)
[2019-09-08] MEDS: ATORVASTATIN 40 MG TABLET PO SCH (09:13)
[2019-09-08] MEDS: calcitrioL 0.25 MCG CAPSULE PO SCH (09:13)
[2019-09-08 12:01] VITALS: BP 158/93
== END 2019-09-08 11:45 | disposition home health service (06) | DRG 673 ==
LOC: EDUNIT# → EDBD → N.ED 06:43 → SUATTDRO 11:45 → N.EDINP 11:45 → N.5E 12:57 → N.ICU 09-03 14:01 → N.5E 09-04 18:09
PROVIDERS: ADMIT Hospitalist; ATTEND Internal Medicine
PROC: VAVDCFI (2019-08-27 10:30)

== ENCOUNTER 2020-01-11 14:12 | Inpatient (IN) ==
[2020-01-11 15:56] LABS: Basophils % 0.5 % (0.0-0.8); Eosinophils % 0.5 % (0.00-10.9); Hematocrit 39.9 VOL% (42.0-52.0); Immature Granulocytes % 0.9 %; Immature Granulocytes Absolute 0.08 #; Lymphocytes # 0.7 10*3/uL (1.4-4.0); Lymphocytes % 7.8 % (21.2-54.2); Mean Corpuscular HGB Conc 29.3 GM/DL (32-36); Mean Corpuscular Volume 93.4 FL (87-102); Monocytes % 2.8 % (1.7-12.7); Neutrophils % 87.5 % (38.7-73.9); Platelet Count 60 T/CUMM (130-400); Red Blood Count 4.27 MC/CUMM (3.8-5.5); Red Cell Distribution Width 15.9 % (9.3-17.3); White Blood Count 8.8 T/CUMM (4-12)
[2020-01-11 16:11] LABS: Hemoglobin 11.7 GM/DL (14.0-18.0)
[2020-01-11 16:31] LABS: Calcium 8.9 MG/DL (8.5-10.1); Osmolality,Calculated 271.1 MOS/KG (273-304)
[2020-01-11] MEDS ORDERED: DEXTROSE 50% 25 GM/50 ML SYRINGE IV ONE ×3 (16:36→17:35)
[2020-01-11] MEDS ORDERED: DEXTROSE 50% 25 GM/50 ML VIAL IV STA ×2 (16:42→17:01)
[2020-01-11] MEDS ORDERED: ONDANSETRON 4 MG/2 ML VIAL IV PRN (17:03)
[2020-01-11] MEDS ORDERED: GLUCAGON 1 MG VIAL IM PRN ×2 (17:03)
[2020-01-11] MEDS ORDERED: ACETAMINOPHEN 325 MG TABLET PO PRN (17:03)
[2020-01-11] MEDS ORDERED: DEXTROSE 50% 25 GM/50 ML VIAL IV PRN ×2 (17:03)
[2020-01-11] MEDS ORDERED: AZITHROMYCIN INJ 500 MG in SODIUM CHLORIDE 0.9% 250 ML IV SCH (17:30)
[2020-01-11] MEDS ORDERED: ENOXAPARIN 40 MG/0.4 ML SYRINGE SUBCUT SCH (17:30)
[2020-01-11] MEDS ORDERED: ASPIRIN CHEW 81 MG TABLET PO STA (17:42)
[2020-01-11] MEDS ORDERED: DEXTROSE 10% 1,000 ML IV SCH (18:00)
[2020-01-11] MEDS ORDERED: AZITHROMYCIN 250 MG TABLET PO ONE (18:00)
[2020-01-11] MEDS ORDERED: NOREPINEPHRINE 4 MG/4 ML VIAL IV ONE (18:47)
[2020-01-11] MEDS ORDERED: DEXTROSE 10% 250 ML IV ONE ×2 (18:48→18:49)
[2020-01-11] MEDS: HYDROCORTISONE 100 MG VIAL IV SCH (19:10)
[2020-01-11] MEDS: NOREPINEPHRINE 8 MG in SODIUM CHLORIDE 0.9% 242 ML IV PRN (19:50)
[2020-01-11] MEDS ORDERED: VANCOMYCIN INJ 1,500 MG in SODIUM CHLORIDE 0.9% 500 ML IV ONE ×2 (20:00→23:00)
[2020-01-11 21:10] LABS: INR 2.6
[2020-01-11 21:13] LABS: PT Patient Result 26.6 SECS (9.8-11.9)
[2020-01-11 21:18] LABS: Alanine Aminotransferase 87 U/L (16-61); Albumin 2.7 G/DL (3.4-5.0); Alkaline Phosphatase 115 U/L (45-117); Aspartate Amino Transferase 226 U/L (0-37); Bilirubin,Indirect 0.5 MG/DL (0.0-1.0); Total Protein 7.9 G/DL (6.4-8.3)
[2020-01-11] MEDS: cefTRIAXone 1,000 MG in SYRINGE 1 EACH IV SCH (21:50)
[2020-01-11] MEDS ORDERED: FLUDROCORTISONE 0.1 MG TABLET PO ONE (22:49)
[2020-01-12] MEDS: HYDROCORTISONE 100 MG VIAL IV SCH ×3 (02:50→18:20)
[2020-01-12 04:31] LABS: Albumin 2.7 G/DL (3.4-5.0); Basophils # 0.1 10*3/uL (0.0-0.2); Basophils % 0.5 % (0.0-0.8); Bilirubin,Total 1.7 MG/DL (0.2-1.0); Eosinophils % 0.1 % (0.00-10.9); Hematocrit 40.1 VOL% (42.0-52.0); Hemoglobin 12.1 GM/DL (14.0-18.0); Immature Granulocytes % 4.5 %; Immature Granulocytes Absolute 0.79 #; Lymphocytes # 0.4 10*3/uL (1.4-4.0); Lymphocytes % 2.5 % (21.2-54.2); Mean Corpuscular HGB Conc 30.2 GM/DL (32-36); Mean Corpuscular Volume 91.3 FL (87-102); Monocytes % 3.9 % (1.7-12.7); Neutrophils % 88.5 % (38.7-73.9); Osmolality,Calculated 281.4 MOS/KG (273-304); Platelet Count 55 T/CUMM (130-400); Red Blood Count 4.39 MC/CUMM (3.8-5.5); Total Protein 8.1 G/DL (6.4-8.3); White Blood Count 17.5 T/CUMM (4-12)
[2020-01-12 04:42] LABS: Band Neutrophils 7 % (0-10); Eosinophils 1 % (0-10); Platelet Estimate Decreased; Segmented Neutrophils 87 % (50-85); Total Cells Counted 100
[2020-01-12 04:43] LABS: Hypochromasia Slight
[2020-01-12 04:44] LABS: Thyroid Stimulating Hormone 4.67 uIU/ml (0.358-3.74)
[2020-01-12] MEDS ORDERED: AZITHROMYCIN 250 MG TABLET PO SCH (09:00)
[2020-01-12] MEDS: FLUDROCORTISONE 0.1 MG TABLET PO SCH (09:30)
[2020-01-12] MEDS ORDERED: DIAZEPAM 5 MG TABLET ONE (11:24)
[2020-01-12] MEDS ORDERED: DIAZEPAM 5 MG TABLET PO ONE (11:30)
[2020-01-12] MEDS: NOREPINEPHRINE 8 MG in SODIUM CHLORIDE 0.9% 242 ML IV PRN ×2 (11:55→23:53)
[2020-01-12] MEDS ORDERED: VANCOMYCIN INJ 750 MG in SODIUM CHLORIDE 0.9% 250 ML IV PRN (16:26)
[2020-01-12 16:56] LABS: CKMB % 1.5 %
[2020-01-12 17:00] LABS: Troponin I 5.28 NG/ML (0.00-0.045)
[2020-01-12] MEDS: cefTRIAXone 1,000 MG in SYRINGE 1 EACH IV SCH (18:15)
[2020-01-12] MEDS ORDERED: VANCOMYCIN INJ 750 MG in SODIUM CHLORIDE 0.9% 250 ML IV ONE (20:00)
[2020-01-13] MEDS: HYDROCORTISONE 100 MG VIAL IV SCH (03:56)
[2020-01-13 05:01] LABS: Basophils % 0.3 % (0.0-0.8); Eosinophils # 0.5 10*3/uL (0.0-0.87); Eosinophils % 3.3 % (0.00-10.9); Hematocrit 41.8 VOL% (42.0-52.0); Immature Granulocytes % 2.9 %; Immature Granulocytes Absolute 0.41 #; Lymphocytes # 0.4 10*3/uL (1.4-4.0); Lymphocytes % 3.1 % (21.2-54.2); Mean Corpuscular HGB Conc 28.9 GM/DL (32-36); Mean Corpuscular Volume 93.9 FL (87-102); Monocytes % 3.3 % (1.7-12.7); Neutrophils % 87.1 % (38.7-73.9); Platelet Count 58 T/CUMM (130-400); Red Blood Count 4.45 MC/CUMM (3.8-5.5); Red Cell Distribution Width 16.3 % (9.3-17.3)
[2020-01-13 05:13] LABS: Albumin 2.3 G/DL (3.4-5.0); Bilirubin,Total 1.4 MG/DL (0.2-1.0); Osmolality,Calculated 276.4 MOS/KG (273-304); Total Protein 7.7 G/DL (6.4-8.3)
[2020-01-13 05:15] LABS: CKMB % 2.6 %
[2020-01-13 05:16] LABS: Troponin I 2.72 NG/ML (0.00-0.045)
[2020-01-13 05:20] LABS: HDL Cholesterol < 10 MG/DL (40-60); Triglycerides 225 MG/DL (2-150)
[2020-01-13 05:50] LABS: Hemoglobin 12.5 GM/DL (14.0-18.0)
[2020-01-13 05:56] LABS: Band Neutrophils 3 % (0-10); Hypochromasia 1+; Lymphocytes 2 % (20-55); Segmented Neutrophils 90 % (50-85); Total Cells Counted 100
[2020-01-13 05:57] LABS: Microcytosis 1+; Ovalocytes Slight; Platelet Estimate Decreased; Polychromasia Slight
[2020-01-13] MEDS: FLUDROCORTISONE 0.1 MG TABLET PO SCH (10:16)
[2020-01-13] MEDS: ASPIRIN EC 325 MG TABLET PO SCH (10:16)
[2020-01-13] MEDS ORDERED: VANCOMYCIN INJ 750 MG in SODIUM CHLORIDE 0.9% 250 ML IV ONE (12:00)
[2020-01-13] MEDS: cefTRIAXone 1,000 MG in SYRINGE 1 EACH IV SCH (18:17)
[2020-01-14 05:39] LABS: Albumin 2.2 G/DL (3.4-5.0); Calcium 9.4 MG/DL (8.5-10.1); Osmolality,Calculated 279.4 MOS/KG (273-304); Total Protein 7.4 G/DL (6.4-8.3)
[2020-01-14] MEDS: FLUDROCORTISONE 0.1 MG TABLET PO SCH (09:10)
[2020-01-14] MEDS ORDERED: HEPARIN 10,000 UNIT/10 ML VIAL IV SCH (09:15)
[2020-01-14] MEDS: RIFAMPIN 300 MG CAPSULE PO SCH ×2 (09:30→20:27)
[2020-01-14] MEDS: ASPIRIN EC 325 MG TABLET PO SCH (09:39)
[2020-01-14] MEDS: HYDROCORTISONE 100 MG VIAL IV SCH (09:43)
[2020-01-14] MEDS ORDERED: VANCOMYCIN INJ 750 MG in SODIUM CHLORIDE 0.9% 250 ML IV ONE (12:00)
[2020-01-14] MEDS ORDERED: LIDOCAINE 1%/EPI INJ 20 ML VIAL ONE (12:12)
[2020-01-14] MEDS ORDERED: BUPIVACAINE MPF 0.25% 30 ML VIAL ONE (12:12)
[2020-01-14] MEDS ORDERED: propofoL 200 MG/20 ML VIAL IV ONE (12:33)
[2020-01-14] MEDS ORDERED: ETOMIDATE 40 MG/20 ML VIAL IV ONE (12:33)
[2020-01-14] MEDS ORDERED: SODIUM CHLORIDE 0.9% 250 ML IV ONE (12:33)
[2020-01-15 06:11] LABS: Calcium 9.6 MG/DL (8.5-10.1); Osmolality,Calculated 279.2 MOS/KG (273-304)
[2020-01-15 07:13] LABS: Basophils % 0.2 % (0.0-0.8); Eosinophils % 0.4 % (0.00-10.9); Hematocrit 36.4 VOL% (42.0-52.0); Immature Granulocytes % 1.2 %; Immature Granulocytes Absolute 0.06 #; Lymphocytes # 0.3 10*3/uL (1.4-4.0); Lymphocytes % 6.1 % (21.2-54.2); Mean Corpuscular HGB Conc 30.2 GM/DL (32-36); Monocytes % 5.1 % (1.7-12.7); Red Cell Distribution Width 16.4 % (9.3-17.3); White Blood Count 5.1 T/CUMM (4-12)
[2020-01-15 07:17] LABS: Platelet Count 23 T/CUMM (130-400)
[2020-01-15 07:34] LABS: Hypochromasia 1+; Ovalocytes Slight; Platelet Estimate Decreased
[2020-01-15 07:35] LABS: Microcytosis Slight
[2020-01-15] MEDS: HYDROCORTISONE 100 MG VIAL IV SCH (08:36)
[2020-01-15] MEDS: ASPIRIN EC 325 MG TABLET PO SCH (08:36)
[2020-01-15] MEDS: RIFAMPIN 300 MG CAPSULE PO SCH ×2 (08:36→20:45)
[2020-01-15] MEDS: FLUDROCORTISONE 0.1 MG TABLET PO SCH (08:36)
[2020-01-15] MEDS ORDERED: POTASSIUM CHLORIDE 20 MEQ TABLET PO ONE (10:23)
[2020-01-15] MEDS: carvediloL 3.125 MG TABLET PO SCH ×2 (11:51→20:46)
[2020-01-15] MEDS: amLODIPine 10 MG TABLET PO SCH (13:51)
[2020-01-15] MEDS: CINACALCET 30 MG TABLET PO SCH (13:51)
[2020-01-15] MEDS: ATORVASTATIN 20 MG TABLET PO SCH (20:46)
[2020-01-16] MEDS: HYDROCORTISONE 10 MG TABLET PO SCH (08:47)
[2020-01-16] MEDS: FLUDROCORTISONE 0.1 MG TABLET PO SCH (08:48)
[2020-01-16] MEDS: amLODIPine 10 MG TABLET PO SCH (08:48)
[2020-01-16] MEDS: RIFAMPIN 300 MG CAPSULE PO SCH ×2 (08:48→21:43)
[2020-01-16] MEDS: CINACALCET 30 MG TABLET PO SCH (08:48)
[2020-01-16] MEDS: carvediloL 3.125 MG TABLET PO SCH ×2 (08:49→21:44)
[2020-01-16] MEDS: ATORVASTATIN 20 MG TABLET PO SCH (21:44)
[2020-01-17 06:40] LABS: Calcium 9.6 MG/DL (8.5-10.1); Osmolality,Calculated 288.2 MOS/KG (273-304)
[2020-01-17 07:38] LABS: Eosinophils # 0.1 10*3/uL (0.0-0.87); Eosinophils % 2.7 % (0.00-10.9); Hemoglobin 10.8 GM/DL (14.0-18.0); Immature Granulocytes % 3.3 %; Immature Granulocytes Absolute 0.12 #; Lymphocytes # 0.4 10*3/uL (1.4-4.0); Lymphocytes % 10.1 % (21.2-54.2); Mean Corpuscular HGB Conc 31.8 GM/DL (32-36); Mean Corpuscular Volume 89.7 FL (87-102); Monocytes % 7.1 % (1.7-12.7); Neutrophils % 76.8 % (38.7-73.9); Red Blood Count 3.79 MC/CUMM (3.8-5.5); White Blood Count 3.7 T/CUMM (4-12)
[2020-01-17 07:46] LABS: Platelet Count 26 T/CUMM (130-400)
[2020-01-17 07:53] LABS: Hypochromasia 1+
[2020-01-17 07:54] LABS: Microcytosis 1+; Ovalocytes Slight; Platelet Estimate Decreased
[2020-01-17] MEDS: amLODIPine 10 MG TABLET PO SCH (11:07)
[2020-01-17] MEDS: RIFAMPIN 300 MG CAPSULE PO SCH ×2 (11:07→21:55)
[2020-01-17] MEDS: carvediloL 3.125 MG TABLET PO SCH ×2 (11:07→21:55)
[2020-01-17] MEDS: CINACALCET 30 MG TABLET PO SCH (11:07)
[2020-01-17] MEDS: FLUDROCORTISONE 0.1 MG TABLET PO SCH (11:07)
[2020-01-17] MEDS: HYDROCORTISONE 10 MG TABLET PO SCH (11:18)
[2020-01-17] MEDS: ATORVASTATIN 20 MG TABLET PO SCH (21:56)
[2020-01-18 07:00] LABS: Basophils % 0.4 % (0.0-0.8); Eosinophils # 0.2 10*3/uL (0.0-0.87); Eosinophils % 3.3 % (0.00-10.9); Hematocrit 33.1 VOL% (42.0-52.0); Hemoglobin 10.5 GM/DL (14.0-18.0); Immature Granulocytes Absolute 0.05 #; Lymphocytes # 0.4 10*3/uL (1.4-4.0); Lymphocytes % 7.7 % (21.2-54.2); Mean Corpuscular HGB Conc 31.7 GM/DL (32-36); Mean Corpuscular Volume 87.3 FL (87-102); Neutrophils % 82.6 % (38.7-73.9); Red Blood Count 3.79 MC/CUMM (3.8-5.5); Red Cell Distribution Width 17.1 % (9.3-17.3); White Blood Count 4.8 T/CUMM (4-12)
[2020-01-18 07:18] LABS: Platelet Count 42 T/CUMM (130-400)
[2020-01-18 07:27] LABS: Calcium 9.4 MG/DL (8.5-10.1); Osmolality,Calculated 297.7 MOS/KG (273-304)
[2020-01-18 07:47] LABS: Anisocytosis 1+; Platelet Estimate Decreased; Target Cells Few
[2020-01-18 07:48] LABS: Hypochromasia 1+; Poikilocytosis Slight
[2020-01-18] MEDS: CINACALCET 30 MG TABLET PO SCH (08:41)
[2020-01-18] MEDS: amLODIPine 10 MG TABLET PO SCH (08:41)
[2020-01-18] MEDS: HYDROCORTISONE 10 MG TABLET PO SCH (08:41)
[2020-01-18] MEDS: carvediloL 3.125 MG TABLET PO SCH (08:41)
[2020-01-18] MEDS: RIFAMPIN 300 MG CAPSULE PO SCH (08:41)
[2020-01-18] MEDS: ATORVASTATIN 20 MG TABLET PO SCH (21:37)
[2020-01-19 07:04] LABS: Basophils % 0.3 % (0.0-0.8); Eosinophils # 0.2 10*3/uL (0.0-0.87); Eosinophils % 3.4 % (0.00-10.9); Hematocrit 34.1 VOL% (42.0-52.0); Hemoglobin 10.4 GM/DL (14.0-18.0); Immature Granulocytes Absolute 0.07 #; Lymphocytes # 0.5 10*3/uL (1.4-4.0); Lymphocytes % 6.9 % (21.2-54.2); Mean Corpuscular HGB Conc 30.5 GM/DL (32-36); Mean Corpuscular Volume 90.9 FL (87-102); Monocytes % 6.9 % (1.7-12.7); Neutrophils % 81.5 % (38.7-73.9); Red Blood Count 3.75 MC/CUMM (3.8-5.5); Red Cell Distribution Width 17.2 % (9.3-17.3)
[2020-01-19 07:11] LABS: Platelet Count 52 T/CUMM (130-400); White Blood Count 6.8 T/CUMM (4-12)
[2020-01-19 07:26] LABS: Hypochromasia 1+; Microcytosis 1+; Target Cells Slight
[2020-01-19 07:27] LABS: Platelet Estimate Decreased
[2020-01-19 07:49] LABS: Calcium 9.4 MG/DL (8.5-10.1); Osmolality,Calculated 296.8 MOS/KG (273-304)
[2020-01-19] MEDS ORDERED: DEXTROSE 10% 250 ML IV ONE (07:52)
[2020-01-19] MEDS ORDERED: hydrALAZINE 20 MG/1 ML VIAL IV PRN (07:57)
[2020-01-19] MEDS: lisinopriL 2.5 MG TABLET PO SCH ×2 (08:18→10:09)
[2020-01-19] MEDS: CINACALCET 30 MG TABLET PO SCH ×2 (08:18→10:09)
[2020-01-19] MEDS: amLODIPine 10 MG TABLET PO SCH ×2 (08:19→10:09)
[2020-01-19] MEDS: DEXTROSE 5% NACL 0.45% 1,000 ML IV SCH (08:27)
[2020-01-19] MEDS: HYDROCORTISONE 10 MG TABLET PO SCH ×2 (08:32→10:09)
[2020-01-19] MEDS ORDERED: LIDOCAINE 1% 20 ML VIAL ONE (10:51)
[2020-01-19] MEDS ORDERED: HEPARIN 5,000 UNIT/1 ML VIAL ONE (10:51)
[2020-01-19] MEDS ORDERED: fentaNYL 100 MCG/2 ML VIAL ONE (11:36)
[2020-01-19] MEDS ORDERED: LIDOCAINE 2% 5 ML VIAL ONE (11:36)
[2020-01-19] MEDS ORDERED: propofoL 200 MG/20 ML VIAL IV ONE (11:36)
[2020-01-19] MEDS ORDERED: PHENYLEPHRINE 1 MG/10 ML SYRINGE IV ONE (11:36)
[2020-01-19] MEDS ORDERED: SODIUM CHLORIDE 0.9% 100 ML IV ONE (11:37)
[2020-01-19] MEDS ORDERED: VANCOMYCIN INJ 750 MG in SODIUM CHLORIDE 0.9% 250 ML IV ONE (17:00)
[2020-01-19 20:21] LABS: HIT Interpretation Negative (Negative)
[2020-01-20] MEDS ORDERED: VANCOMYCIN INJ 750 MG in SODIUM CHLORIDE 0.9% 250 ML IV PRN (06:51)
[2020-01-20 06:53] LABS: Basophils % 0.3 % (0.0-0.8); Eosinophils # 0.2 10*3/uL (0.0-0.87); Eosinophils % 2.4 % (0.00-10.9); Hematocrit 32.2 VOL% (42.0-52.0); Immature Granulocytes % 0.9 %; Immature Granulocytes Absolute 0.06 #; Lymphocytes # 0.5 10*3/uL (1.4-4.0); Lymphocytes % 6.6 % (21.2-54.2); Mean Corpuscular HGB Conc 31.1 GM/DL (32-36); Mean Corpuscular Volume 87.7 FL (87-102); Neutrophils % 83.8 % (38.7-73.9); Red Blood Count 3.67 MC/CUMM (3.8-5.5); Red Cell Distribution Width 17.2 % (9.3-17.3)
[2020-01-20 06:55] LABS: Platelet Count 59 T/CUMM (130-400)
[2020-01-20 07:13] LABS: Hypochromasia 1+; Ovalocytes Slight; Platelet Estimate Decreased
[2020-01-20 07:14] LABS: Microcytosis Slight
[2020-01-20 07:21] LABS: Calcium 8.8 MG/DL (8.5-10.1)
[2020-01-20] MEDS: lisinopriL 2.5 MG TABLET PO SCH (08:18)
[2020-01-20] MEDS: amLODIPine 10 MG TABLET PO SCH (08:18)
[2020-01-20] MEDS: HYDROCORTISONE 10 MG TABLET PO SCH (08:18)
[2020-01-20] MEDS: CINACALCET 30 MG TABLET PO SCH (08:19)
[2020-01-20] MEDS: DEXTROSE 5% NACL 0.45% 1,000 ML IV SCH (08:19)
[2020-01-20] MEDS: DEXTROSE 10% 250 ML BAG IV PRN (15:20)
[2020-01-20] MEDS ORDERED: VANCOMYCIN INJ 750 MG in SODIUM CHLORIDE 0.9% 250 ML IV ONE (17:00)
[2020-01-20] MEDS ORDERED: ACETAMINOPHEN 650 MG SUPP RECTAL PRN (20:09)
[2020-01-21] MEDS: DEXTROSE 10% 250 ML BAG IV PRN ×2 (03:11→20:32)
[2020-01-21 06:00] LABS: Basophils % 0.3 % (0.0-0.8); Eosinophils # 0.2 10*3/uL (0.0-0.87); Eosinophils % 3.3 % (0.00-10.9); Hematocrit 31.7 VOL% (42.0-52.0); Hemoglobin 9.3 GM/DL (14.0-18.0); Immature Granulocytes % 1.1 %; Immature Granulocytes Absolute 0.07 #; Lymphocytes # 0.5 10*3/uL (1.4-4.0); Lymphocytes % 8.7 % (21.2-54.2); Mean Corpuscular HGB Conc 29.3 GM/DL (32-36); Mean Corpuscular Volume 92.2 FL (87-102); Monocytes % 6.9 % (1.7-12.7); Neutrophils % 79.7 % (38.7-73.9); Red Blood Count 3.44 MC/CUMM (3.8-5.5); Red Cell Distribution Width 17.2 % (9.3-17.3); White Blood Count 6.1 T/CUMM (4-12)
[2020-01-21 06:04] LABS: Platelet Count 58 T/CUMM (130-400)
[2020-01-21 06:21] LABS: Calcium 8.9 MG/DL (8.5-10.1); Osmolality,Calculated 277.1 MOS/KG (273-304)
[2020-01-21] MEDS ORDERED: hydrALAZINE 20 MG/1 ML VIAL IV PRN (08:33)
[2020-01-21] MEDS ORDERED: METOPROLOL TARTRATE 5 MG/5 ML VIAL IV PRN (08:54)
[2020-01-21] MEDS: CINACALCET 30 MG TABLET PO SCH (09:00)
[2020-01-21] MEDS: HYDROCORTISONE 10 MG TABLET PO SCH (09:00)
[2020-01-21] MEDS: LEVALBUTEROL 0.63 MG/3 ML NEB RESP TX SCH ×2 (12:19→19:47)
[2020-01-21] MEDS: DEXTROSE 5% NACL 0.45% 1,000 ML IV SCH (14:56)
[2020-01-22] MEDS: LEVALBUTEROL 0.63 MG/3 ML NEB RESP TX SCH ×4 (00:30→19:22)
[2020-01-22 05:50] LABS: Basophils % 0.5 % (0.0-0.8); Eosinophils # 0.2 10*3/uL (0.0-0.87); Eosinophils % 2.9 % (0.00-10.9); Hematocrit 29.8 VOL% (42.0-52.0); Hemoglobin 8.7 GM/DL (14.0-18.0); Immature Granulocytes % 0.8 %; Immature Granulocytes Absolute 0.05 #; Lymphocytes # 0.8 10*3/uL (1.4-4.0); Lymphocytes % 11.8 % (21.2-54.2); Mean Corpuscular HGB Conc 29.2 GM/DL (32-36); Mean Corpuscular Volume 91.7 FL (87-102); Monocytes % 6.8 % (1.7-12.7); Neutrophils % 77.2 % (38.7-73.9); Platelet Count 56 T/CUMM (130-400); Red Blood Count 3.25 MC/CUMM (3.8-5.5); Red Cell Distribution Width 17.1 % (9.3-17.3); White Blood Count 6.6 T/CUMM (4-12)
[2020-01-22 06:14] LABS: Osmolality,Calculated 277.2 MOS/KG (273-304)
[2020-01-22 06:37] LABS: Band Neutrophils 2 % (0-10); Eosinophils 3 % (0-10); Hypochromasia 2+; Lymphocytes 11 % (20-55); Microcytosis Slight; Ovalocytes Slight; Platelet Estimate Decreased; Segmented Neutrophils 78 % (50-85); Total Cells Counted 100
[2020-01-22] MEDS: CINACALCET 30 MG TABLET PO SCH (09:56)
[2020-01-22] MEDS: DEXTROSE 10% 250 ML BAG IV PRN (11:43)
[2020-01-22] MEDS ORDERED: VANCOMYCIN INJ 750 MG in SODIUM CHLORIDE 0.9% 250 ML IV ONE (17:00)
[2020-01-22] MEDS: DEXTROSE 5% NACL 0.45% 1,000 ML IV SCH (23:16)
[2020-01-23] MEDS: LEVALBUTEROL 0.63 MG/3 ML NEB RESP TX SCH ×3 (00:53→13:39)
[2020-01-23 06:58] LABS: Albumin 1.8 G/DL (3.4-5.0); Bilirubin,Direct 1.02 MG/DL (0.0-0.20); Bilirubin,Indirect 0.4 MG/DL (0.0-1.0); Bilirubin,Total 1.4 MG/DL (0.2-1.0); Total Protein 7.2 G/DL (6.4-8.3)
[2020-01-23] MEDS: CINACALCET 30 MG TABLET PO SCH (09:55)
[2020-01-23 16:53] VITALS: BP 121/95
[2020-01-23] MEDS ORDERED: EPINEPHrine 1 MG/ML VIAL ONE ×5 (19:37→19:43)
[2020-01-23] MEDS: DEXTROSE 5% NACL 0.45% 1,000 ML IV SCH (20:50)
== END 2020-01-24 01:10 | disposition expired ==
LOC: EDBD → EDUNIT# → N.EDINP 14:12 → N.ED 14:12 → SUATTDRO 17:03 → N.3E 17:40 → N.TELEN 18:10 → SUATTDRO 19:14 → N.ICU 19:30 → N.3E 01-16 11:03
PROVIDERS: ADMIT Internal Medicine; ATTEND Hospitalist